=== PATIENT | female | born 1980 | race American Indian/Alaskan Native ===

== ENCOUNTER 2017-01-17 14:06 | Emergency (ER) | payer OTHER ==
[2017-01-17 14:21] VITALS: TEMP 98
--- NOTE | 2017-01-17 14:28 | ED PDOC ---
Arrival/HPI - General Chief Complaint: Lower Extremity Problem/Injury Time Seen by Provider: 01/17/17 14:15 Historian: Patient - History of Present Illness Narrative History of Present Illness (Text): 01/17/17 14:22 36 y/o female, no significant pmh, nkda, c/o rt. ankle pain x 1 day. Pt. was walking and inversion twisted the ankle, aching pain, aggravated by walking and weight bearing, no numbness or tingling, no calf pain, no foot pain, no other medical or psychological complaints. Past Medical History - Provider Review Nursing Documentation Reviewed: Yes - Infectious Disease Hx of Infectious Diseases: None - Psychiatric Hx Substance Use: No - Anesthesia Hx Anesthesia: No Hx Anesthesia Reactions: No Hx Malignant Hyperthermia: No Family/Social History - Physician Review Nursing Documentation Reviewed: Yes Family/Social History: Unknown Family HX Smoking Status: Never Smoked Hx Alcohol Use: No Hx Substance Use: No Allergies/Home Meds Allergies/Adverse Reactions: Allergies No Known Allergies Allergy (Verified 01/17/17 14:21) Review of Systems - Review of Systems Constitutional: absent: Fatigue, Fevers ENT: absent: Hearing Changes Respiratory: absent: SOB, Cough Gastrointestinal: absent: Abdominal Pain, Nausea, Vomiting Musculoskeletal: Arthralgias. absent: Back Pain, Neck Pain, Joint Swelling, Myalgias Neurological: absent: Headache, Dizziness Psychiatric: absent: Anxiety Physical Exam Vital Signs Reviewed: Yes Vital Signs Temp Pulse Resp BP Pulse Ox 01/17/17 15:04 98 F 76 20 118/75 99 01/17/17 14:18 98 F 75 19 121/72 100 Temperature: Afebrile Blood Pressure: Normal Pulse: Regular Respiratory Rate: Normal Appearance: Positive for: Well-Appearing, Non-Toxic, Comfortable Pain Distress: Mild Mental Status: Positive for: Alert and Oriented X 3 - Systems Exam Head: Present: Atraumatic, Normocephalic Pupils: Present: PERRL Extroacular Muscles: Present: EOMI Conjunctiva: Present: Normal Mouth: Present: Moist Mucous Membranes Neck: Present: Normal Range of Motion Respiratory/Chest: Present: Clear to Auscultation, Good Air Exchange. No: Respiratory Distress, Accessory Muscle Use Cardiovascular: Present: Regular Rate and Rhythm, Normal S1, S2. No: Murmurs Abdomen: Present: Normal Bowel Sounds. No: Tenderness, Distention, Peritoneal Signs Back: Present: Normal Inspection Upper Extremity: Present: Normal Inspection. No: Cyanosis, Edema Lower Extremity: Present: Normal Inspection, Other (Rt. ankle/foot: +ttp on the lateral malleolus region with mild swelling, negative kayley and arias signs, FROM without limtiation, sensation intact, motor 5/5. ). No: Edema Neurological: Present: GCS=15, Speech Normal, Motor Func Grossly Intact, Memory Normal Skin: Present: Warm, Dry, Normal Color. No: Rashes Psychiatric: Present: Alert, Oriented x 3, Normal Insight, Normal Concentration Medical Decision Making ED Course and Treatment: 01/17/17 14:32 -tylenol -xray show no fracture or dislocation -srini wrap and crutches with neurovascular intact. -Discharge home with naproxen, srini wrap, crutches, ice compression, follow up with your own pmd and orthopedic within 2 days, return to the ER for any new or worsening signs or symptoms. - RAD Interpretation Radiology Orders: 01/17/17 14:28 ANKLE RIGHT 3 VIEWS ROUTINE [RAD] Stat normal rt. wrist radiograph Washroom Attendant: Radiologist - Medication Orders Current Medication Orders: Discontinued Medications Acetaminophen (Tylenol 325mg Tab) 650 mg PO STAT STA Stop: 01/17/17 14:29 Last Admin: 01/17/17 14:39 Dose: 650 mg - PA / [employer]UMENT [employer]SEM[employer] SUPERVISOR / Resident Statement MD/DO has reviewed & agrees with the documentation as recorded. Disposition/Present on Arrival - Present on Arrival Any Indicators Present on Arrival: No History of DVT/PE: No History of Uncontrolled Diabetes: No Urinary Catheter: No History of Decub. Ulcer: No History Surgical Site Infection Following: None - Disposition Have Diagnosis and Disposition been Completed?: Yes Diagnosis: Ankle pain, Ankle injury Disposition: HOME/ ROUTINE Disposition Time: 15:03 Patient Plan: Discharge Condition: GOOD Additional Instructions: Discharge home with naproxen, srini wrap, crutches, ice compression, follow up with your own pmd and orthopedic within 2 days, return to the ER for any new or worsening signs or symptoms. Prescriptions: Naproxen 500 mg PO BID #20 tab Referrals: Cm Aviles MD [Staff Provider] - Follow up with primary Forms: WORK NOTE
[2017-01-17 15:05] VITALS: BP 118/75; PULSE 76; RESP 20; O2SAT 99
--- NOTE | 2017-01-17 15:19 | RAD ---
PROCEDURE: Right Wrist Radiographs. HISTORY: rt. ankle inversion injury and swelling COMPARISON: None. FINDINGS: BONES: Normal. No fracture. JOINTS: Normal. No dislocation. SOFT TISSUES: Normal. OTHER FINDINGS: None. IMPRESSION: Normal right wrist radiographs.
== END 2017-01-17 15:12 | disposition home or self-care (01) ==
LOC: ED 14:06 → MERGE 14:06 → ED 15:12
DX: S99.911A Unspecified injury of right ankle, initial encounter (principal); X50.0XXA Overexertion from strenuous movement or load, initial encounter; Y93.89 Activity, other specified; Y92.89 Other specified places as the place of occurrence of the external cause